=== PATIENT | male | born 1985 | race Two or more races ===

== ENCOUNTER 2023-03-23 22:12 | Inpatient (IN) | payer MEDICAID ==
[~2023-03-23] VITALS: Ht 182.9 cm; Wt 117.0 kg
[2023-03-23 23:28] LABS: BASOPHILS % (AUTO) 0.6 % (0.0-2.0); EOSINOPHILS % (AUTO) 3.1 % (1.0-6.0); HEMATOCRIT 41.4 % (41-53); HEMOGLOBIN 14.1 g/dL (13.5-17.5); MEAN CORPUSCULAR HGB CONC 34.1 G/dL (31.0-37.0); MEAN CORPUSCULAR VOLUME 97 fL (80-100); MONOCYTES # (AUTO) 0.7 K/uL (0.1-1.0); MONOCYTES % (AUTO) 8.2 % (2.0-9.0); NEUTROPHILS # (AUTO) 4.3 K/uL (1.8-7.7); NEUTROPHILS % (AUTO) 52.1 % (40.0-70.0); PLATELET COUNT (AUTO) 285 K/uL (150-450); RED BLOOD CELL COUNT(AUTO) 4.28 MIL/uL (4.50-5.90); RED CELL DISTRIBUTION WIDTH 13.5 % (11.5-14.5)
[2023-03-23 23:37] LABS: AMPHET/METH SCREEN,URINE NEGATIVE (NEGATIVE); BARBITURATE SCREEN, URINE NEGATIVE (NEGATIVE); BENZODIAZEPINES SCREEN,URINE NEGATIVE (NEGATIVE); CANNABINOID SCREEN,URINE NEGATIVE (NEGATIVE); COCAINE SCREEN,URINE NEGATIVE (NEGATIVE); METHADONE SCREEN, URINE NEGATIVE (NEGATIVE); OPIATE SCREEN,URINE NEGATIVE (NEGATIVE); PHENCYCLIDINE SCREEN,URINE NEGATIVE (NEGATIVE)
[2023-03-23 23:45] LABS: ANION GAP 11 mmol/L (8-16); CALCIUM, TOTAL 8.7 mg/dL (8.8-10.5); CARBON DIOXIDE 26 mmol/L (22-29); CHLORIDE 105 mmol/L (98-107); CREATININE 0.75 mg/dL (0.60-1.30); GLOMERULAR FILTR. RATE CALC > 60 mL/min (>60); GLUCOSE,RANDOM 100 mg/dL (70-110); POTASSIUM 3.9 mmol/L (3.5-5.1); SODIUM SERUM 142 mmol/L (136-145); UREA NITROGEN, BLOOD 10 mg/dL (7-18)
[2023-03-23 23:53] LABS: ACETAMINOPHEN < 2 mcg/mL (10-30); ALANINE AMINOTRANSFERASE 67 U/L (12-78); ALBUMIN 3.6 g/dL (3.4-5.0); ALKALINE PHOSPHATASE 58 U/L (46-116); ASPARTATE AMINOTRANSFERASE 34 U/L (15-37); BILIRUBIN,TOTAL 0.2 mg/dL (0.1-1.0); TOTAL PROTEIN, SERUM 7.1 g/dL (6.4-8.2)
[2023-03-23 23:58] LABS: SALICYLATE 1.2 mg/dL (2.8-20.0)
[2023-03-24 03:37] LABS: ANION GAP 11 mmol/L (8-16); CALCIUM, TOTAL 8.7 mg/dL (8.8-10.5); CARBON DIOXIDE 25 mmol/L (22-29); CHLORIDE 105 mmol/L (98-107); CREATININE 0.64 mg/dL (0.60-1.30); GLOMERULAR FILTR. RATE CALC > 60 mL/min (>60); GLUCOSE,RANDOM 104 mg/dL (70-110); SODIUM SERUM 141 mmol/L (136-145); UREA NITROGEN, BLOOD 9 mg/dL (7-18)
[2023-03-24 03:44] LABS: ALANINE AMINOTRANSFERASE 63 U/L (12-78); ALBUMIN 3.5 g/dL (3.4-5.0); ALKALINE PHOSPHATASE 55 U/L (46-116); ASPARTATE AMINOTRANSFERASE 32 U/L (15-37); BILIRUBIN,TOTAL 0.4 mg/dL (0.1-1.0); TOTAL PROTEIN, SERUM 6.9 g/dL (6.4-8.2)
[2023-03-24 03:45] LABS: ACETAMINOPHEN < 2 mcg/mL (10-30)
[2023-03-24] MEDS ORDERED: HYDROCODONE/ACETAMINOPHEN 5-325 MG TABLET PO ONE (04:00)
[2023-03-24] MEDS ORDERED: HALOPERIDOL 5 MG TABLET PO PRN (04:15)
[2023-03-24] MEDS ORDERED: LORazepam 2 MG TABLET PO PRN (04:15)
[2023-03-24 07:08] LABS: COVID AG,FIA SOURCE NASOPHARYNGEAL
[2023-03-24 10:45] VITALS: BP 104/70
[2023-03-24] MEDS: BACITRACIN 28 GM OINTMENT TP SCH (17:10)
[2023-03-24] MEDS: IBUPROFEN 400 MG TABLET PO PRN (17:18)
[2023-03-24] MEDS: ZOLPIDEM TARTRATE 10 MG TABLET PO PRN (20:16)
[2023-03-24 20:23] VITALS: BP 108/67
[2023-03-25] MEDS ORDERED: NICOTINE 14 MG/24 HOUR PATCH TD PRN (06:45)
[2023-03-25] MEDS ORDERED: IBUPROFEN 400 MG TABLET PO PRN (06:45)
[2023-03-25] MEDS ORDERED: PETROLATUM,WHITE 28 GM JELLY TP PRN (06:45)
[2023-03-25] MEDS ORDERED: LOPERAMIDE HCL 2 MG CAPSULE PO PRN (06:45)
[2023-03-25] MEDS ORDERED: DOCUSATE SODIUM 100 MG CAPSULE PO PRN (06:45)
[2023-03-25] MEDS ORDERED: ONDANSETRON HCL 4 MG TABLET PO PRN (06:45)
[2023-03-25] MEDS ORDERED: ACETAMINOPHEN 325 MG TABLET PO PRN (06:45)
[2023-03-25] MEDS ORDERED: CloNIDine HCL 0.1 MG TABLET PO PRN (06:45)
[2023-03-25] MEDS ORDERED: ALBUTEROL SULFATE HFA 90 MCG/PUFF 8 GM INHALER IH PRN (06:45)
[2023-03-25] MEDS ORDERED: MAGNESIUM HYDROXIDE SUSPENSION 30 ML UDCUP PO PRN (06:45)
[2023-03-25] MEDS ORDERED: GuaiFENesin/D-METHORPHAN [SUGAR-FREE] 200-20MG/10 ML SYRUP UDCUP PO PRN (06:45)
[2023-03-25] MEDS ORDERED: MAG HYDROX/AL HYDROX/SIMETH ES 30 ML SUSPENSION UDCUP PO PRN (06:45)
[2023-03-25 08:44] VITALS: BP 111/69
[2023-03-25] MEDS: BACITRACIN 28 GM OINTMENT TP SCH ×2 (09:56→16:36)
[2023-03-25] MEDS: IBUPROFEN 400 MG TABLET PO PRN (11:09)
[2023-03-25] MEDS ORDERED: BuPROPion HCL XL 150 MG ER TABLET PO ONE (11:45)
[2023-03-25 20:37] VITALS: BP 114/70
[2023-03-25] MEDS: ZOLPIDEM TARTRATE 10 MG TABLET PO PRN (22:04)
[2023-03-26 08:06] LABS: HEPATITIS C AB (EIA) Non Reactive (Non Reactive)
[2023-03-26 08:27] VITALS: BP 109/62
[2023-03-26] MEDS: BACITRACIN 28 GM OINTMENT TP SCH ×2 (09:16→17:14)
[2023-03-26] MEDS: BuPROPion HCL XL 150 MG ER TABLET PO SCH (09:16)
[2023-03-26 20:35] VITALS: BP 110/70
[2023-03-26] MEDS: ZOLPIDEM TARTRATE 10 MG TABLET PO PRN (20:59)
[2023-03-27 08:28] VITALS: BP 108/67
[2023-03-27] MEDS: BACITRACIN 28 GM OINTMENT TP SCH (09:09)
[2023-03-27] MEDS: BuPROPion HCL XL 150 MG ER TABLET PO SCH (09:09)
[2023-03-27] MEDS ORDERED: BUPR-49 PO (11:06)
== END 2023-03-27 17:31 | disposition home or self-care (01) | DRG 751 ==
LOC: EMS 22:14 → B2S 03-24 06:00
PROVIDERS: ADMIT Psychiatry & Neurology Child & Adolescent Psychiatry; ATTEND Psychiatry & Neurology Child & Adolescent Psychiatry
DX: F33.2 Major depressive disorder, recurrent severe without psychotic features (principal); E66.9 Obesity, unspecified; T42.4X2A Poisoning by benzodiazepines, intentional self-harm, initial encounter; F10.10 Alcohol abuse, uncomplicated; F41.9 Anxiety disorder, unspecified; Y90.6 Blood alcohol level of 120-199 mg/100 ml; G47.00 Insomnia, unspecified; Y92.89 Other specified places as the place of occurrence of the external cause; Z59.00 Homelessness unspecified; Z68.35 Body mass index [BMI] 35.0-35.9, adult
CPT/HCPCS: 70450; 70486; 71250; 72125; 72192; 73700; 74150; 80053; 80307; 85025; 86803; 87340; 93005; 99285; G0480; G0481